=== PATIENT | female | born 1995 | race African-American/Black ===

== ENCOUNTER 2025-04-24 13:50 | Inpatient (IN) | payer OTHER, SELFPAY ==
--- NOTE | ~2025-04-24 | CT_ITS ---
CLINICAL HISTORY: pain and elevated LFTs CT abdomen and pelvis with contrast Comparison: US - US ABDOMEN LIMITED - 04/24/25 15:23 EDT Findings: No consolidation at the lung bases. Unremarkable gallbladder . Underdistended bladder. Multifocal decreased enhancement of the right kidney indicating pyelonephritis. In the upper pole there is a wedge-shaped peripheral region of decreased enhancement which measures slightly higher than fluid attenuation measuring 1.6 x 0.8 x 1.2 cm (measured on series 3, image 12 and series 6, image 50). There is mild right perinephric stranding. The left kidney enhances normally. No hydronephrosis or nephrolithiasis. Of the liver is normal in size and attenuation without focal lesion or periportal edema. 2.8 cm fluid attenuation lesion in the right adnexa is likely a dominant follicle in the right ovary The other solid organs are unremarkable. No bowel wall thickening or dilation. A normal appendix is identified. Normal vasculature. No lymphadenopathy. Small pelvic ascites and/or physiologic free fluid. No acute osseous abnormality. Impression: Right pyelonephritis. 1.6 cm region of decreased enhancement which measures slightly higher than simple fluid in the upper pole of the right kidney could be a developing abscess or infarct. No urinary tract stone or obstruction. Correlate with urinalysis. This document has been electronically signed by: Ceci Oviedo MD on 04/24/2025 18:37:25
--- NOTE | ~2025-04-24 | US_ITS ---
CLINICAL HISTORY: RUQ pain --- Additional Notes or Special Instructions: GB and CBD please Limited abdominal ultrasound Comparison: None available Findings: The liver is enlarged, measuring 18.6 cm in length. Normal echogenicity without focal lesions. Normal hepatopetal flow is seen within the portal vein. The common bile duct is normal in diameter, measuring 0.4 cm. No cholelithiasis. No wall thickening or pericholecystic fluid. Negative sonographic Sarkar sign. The right kidney is normal in echogenicity and size, measuring 11.7 cm in length. Unremarkable limited evaluation of the pancreas. Unremarkable aorta and inferior vena cava. Impression: Negative for acute cholecystitis. Hepatomegaly. Correlate with liver function tests. Hepatitis could be considered. This document has been electronically signed by: Ceci Oviedo MD on 04/24/2025 16:27:35
[2025-04-24 14:00] VITALS: BP 125/79; PULSE 59; RESP 16; TEMP 36.4; O2SAT 97; BMI 26.6
[2025-04-24] MEDS: Lactated Ringers 1,000 ML 999 ML IV (15:02)
[2025-04-24 15:07] LABS: Hematocrit 35.5 % (37.0-47.0); Hemoglobin 12.4 g/dl (12.0-16.0); Imm Gran Abs Auto 0.06 X10*3/uL (0.00-0.03); Imm Gran Pct Auto 0.5 % (0.0-0.4); Lymphocytes Absolute Auto 1.5 X10*3/uL (1.2-4.9); MANUAL DIFF FLAG SCAN; Mean Corpuscular HGB Conc 34.9 g/dl (31.0-35.0); Mean Corpuscular Hemoglobin 31.5 pg (27.0-33.0); Mean Corpuscular Volume 90.1 fL (80.0-98.0); NRBC Abs Auto 0.000 X10*3/uL (0.0-0.012); NRBC Pct Auto 0.0 /100WBC (0.0-0.2); Platelet Count 185 X10*3/uL (160-400); Red Blood Count 3.94 X10*6/uL (4.20-5.50); SCAN SMEAR FLAG 1; White Blood Count 11.7 X10*3/uL (4.8-10.8)
[2025-04-24 15:31] LABS: Alanine Aminotransferase 80 U/L (0-31); Albumin Level 3.3 g/dL (3.5-5.0); Alkaline Phosphatase 139 U/L (39-117); Anion Gap 14 (12-20); Aspartate Amino Transferase 75 U/L (5-31); Blood Urea Nitrogen 10 mg/dL (9-16); Calcium 8.8 mg/dL (8.4-10.2); Carbon Dioxide 28 mmol/L (22-29); Chloride 100 mmol/L (96-108); Creatinine Clr Calc Pharmacy 102.1; Estimated Glomerular Filt Rate > 60; Lipase 8 U/L (8-78); Potassium 2.7 mmol/L (3.3-5.1); Sodium 139 mmol/L (135-145); Total Protein 6.3 g/dL (6.5-8.0); Triglycerides 76 mg/dL (<150)
--- NOTE | 2025-04-24 15:37 | ED.GENADULT ---
HPI - General Adult General Chief complaint: Abdominal Pain Stated complaint: ABD PAIN X5D,FROM UC PER EMS Time Seen by Provider: 04/24/25 14:39 Source: patient, RN notes reviewed and old records reviewed Mode of arrival: EMS Limitations: no limitations History of Present Illness ED Provider: Simin HPI narrative: 29-year-old female presents for evaluation of upper abdominal pain. Patient reports mostly right upper abdominal pain for the last 5 or 6 days pain Her symptoms are associated with nausea and vomiting. Her pain radiates through to her back Her pain is a 10/10 at worst. But it does wax and wane in intensity. She occasionally drinks alcohol but not to excess. She denies any previous abdominal surgeries. Denies any fevers, chills. She went to urgent care prior to arrival and was since the ER for further evaluation and management Related Data Allergies Allergy/AdvReac Type Severity Reaction Status Date / Time No Known Allergies Allergy Verified 04/24/25 14:03 Review of Systems Constitutional: Constitutional: Denies body ache(s), Denies chills and Denies fever(s) Eyes: Eyes: Denies blurry vision ENT: Denies dizziness and Denies dry mouth Cardiovascular: Cardiovascular: Denies chest pain and Denies dyspnea on exertion Respiratory: Respiratory: Denies cough and Denies dyspnea on exertion Gastrointestinal: Gastrointestinal: Reports abdominal pain, Reports nausea and Reports vomiting Genitourinary: Genitourinary: Denies hematuria Musculoskeletal: Musculoskeletal: Reports back pain Integumentary/Breasts: Skin/Breast: Denies rash Neurologic: Denies dizziness Psychiatric: Psychiatric: Denies anxiety PMFSH Social History Social History Smoked in Last 30 Days: No Use of substances other than those prescribed or required for medical reasons: No Advance Directives: No Advance Directives Information Provided: Yes Do you have a plan to hurt others: No Plan Patient : No Physical Exam ED Vital Signs: Vital Signs - 24 hr 04/24/25 14:00 04/24/25 16:09 Temperature 97.5 F Pulse Rate 59 60 Respiratory Rate 16 15 Blood Pressure 125/79 111/64 Pulse Oximetry 97 100 Oxygen Delivery Method Room Air Room Air BMI result Body Mass Index 26.6 Const General: healthy appearing, comfortable, no acute distress, alert and awake Nutritional Appearance: well nourished Orientation/consciousness: patient oriented x3 HENMT Head: Yes normocephalic and Yes atraumatic Eyes Eyelids: Yes eyelids normal Conjunctivae: conjunctivae normal Sclerae: sclerae normal and scleral abnormal bilateral (Bilateral scleral icterus) Corneas: corneas normal Pupils: Equal, round and reactive pupils present EOM: EOMs intact bilaterally Neck Neck: Yes full ROM Resp Effort & Inspection: normal respiratory effort, able to speak in complete sentences and not labored Cardio Rate: regular rate Rhythm: regular rhythm GI Inspection: No distended Palpation (GI): Soft to palpation, not firm, Tenderness to palpation present (GI) in the RUQ and Sarkar's sign positive, Guarding due to palpation present (GI) in the RUQ and not rigid Auscultation: normoactive bowel sounds Skin General skin exam: elasticity normal Neuro General: patient oriented x3 Cranial nerves: Yes Equal, round and reactive pupils present and Yes Bilaterally intact EOM present Cognition (Neuro): normal cognition Extrem Other: Moving all extremities well without any obvious deformities Course Reevaluation(s) Reevaluation #1: Patient's CT scan shows right-sided pyelonephritis. This is consistent with her urinalysis. The patient does complain of UTI symptoms, mostly burning with urination. I ordered IV fluids, blood cultures, lactic acid and IV antibiotics. She does not meet sepsis criteria. Her vital signs are all within normal limits. Given the concern for pyelonephritis as well as concern for biliary disease with the elevated liver enzymes we will treat with both ceftriaxone and metronidazole. I discussed with Urology, Dr. Giraldo who recommends a 14 day course of antibiotics. I spoke to Dr. Becerra, [place] who recommends admission, repeat labs and the patient will likely need MRCP if the liver enzymes remain elevated tomorrow Time: 18:54 Medications Administered Generic Name Dose Route Start Last Admin Trade Name Freq PRN Reason Stop Dose Admin Potassium Chloride/Sodium Chloride 40 meq in 1,000 mls @ 150 mls/hr 04/24/25 15:45 04/24/25 16:08 Kcl 40 Meq In 0.9 % Sodium Chl IVCONT 150 mls/hr .Q6H40M DIA Administration Discontinued Medications Generic Name Dose Route Start Last Admin Trade Name Freq PRN Reason Stop Dose Admin Lactated Ringer's 1,000 mls @ 999 mls/hr 04/24/25 15:00 04/24/25 16:04 Lr IV 04/24/25 16:00 Infused .Q1H1M DIA Infusion Iohexol 100 ml 04/24/25 16:53 04/24/25 16:54 Iohexol 350 Mg/Ml 100 Ml Infus..Btl IV 04/24/25 16:54 85 ml ONCE ONE Administration Medical Decision Making Medical Decision Making [facility] Narrative: 29-year-old female presents for evaluation of upper abdominal pain. The pain started 5 or 6 days ago. She has significant right upper quadrant tenderness on exam. Due to her skin tone in his difficult to see if she has down especially in his have some scleral icterus. Plan for basic labs including LFTs with bilirubin breakdown and a lipase. We had an ultrasound of the upper quadrant. Most likely diagnosis is cholelithiasis, acute cholecystitis, pancreatitis, gallstone pancreatitis, or peptic ulcer disease. Differential Diagnosis Differential Diagnoses: The differential diagnosis associated with the presentation includes As above Admission/Observation Consideration of admission/observation: Escalation of care including admission/observation considered Consult Healthcare Provider Management of the patient was discussed with: Hospitalist and Finance Professional Discussed with both urology and GI recommendations are in the course Lab Data [facility] Lab Attestation statement: I reviewed the patient's lab results. Mild leukocytosis to 11.7. No significant anemia. Normal platelet count. The patient is sodium is within normal limits, potassium is low at 2.7 and likely due to vomiting and decreased p.o. intake. Renal function is normal limits. The patient has an elevated total bilirubin with mostly direct at 3.1. Slightly increase in AST, ALT and alk phos. I suspect this is all related to her pathology related to her current visit. Ultrasound is pending likely biliary disease 04/24/25 15:02 04/24/25 15:02 Labs: Lab Results 04/24/25 04/24/25 Range/Units 15:02 16:10 WBC 11.7 H (4.8-10.8) X10*3/uL RBC 3.94 L (4.20-5.50) X10*6/uL Hgb 12.4 (12.0-16.0) g/dl Hct 35.5 L (37.0-47.0) % MCV 90.1 (80.0-98.0) fL MCH 31.5 (27.0-33.0) pg MCHC 34.9 (31.0-35.0) g/dl RDW 14.2 (11.0-16.0) % Plt Count 185 (160-400) X10*3/uL MPV 9.1 L (9.4-12.3) fL Immature Gran % (Auto) 0.5 H (0.0-0.4) % Neut % (Auto) 69.2 (45-73) % Lymph % (Auto) 12.9 L (20-40) % [place] % (Auto) 13.7 H (2-11) % Eos % (Auto) 3.5 (0-4) % Baso % (Auto) 0.2 (0-2) % Lymph # (Auto) 1.5 (1.2-4.9) X10*3/uL [place] # (Auto) 1.6 H (0.1-1.2) X10*3/uL Eos # (Auto) 0.4 (0.0-0.4) X10*3/uL Baso # (Auto) 0.0 (0.0-0.2) X10*3/uL Abs Immat Gran (auto) 0.06 H (0.00-0.03) X10*3/uL Absolute Neuts (auto) 8.1 (2.0-8.3) x10*3/uL Absolute Nucleated RBC 0.000 (0.0-0.012) X10*3/uL Nucleated RBC % (auto) 0.0 (0.0-0.2) /100WBC Smear Tech's Comments VERIFIED Sodium 139 (135-145) mmol/L Potassium 2.7 L* (3.3-5.1) mmol/L Chloride 100 (96-108) mmol/L Carbon Dioxide 28 (22-29) mmol/L Anion Gap 14 (12-20) BUN 10 (9-16) mg/dL Creatinine 0.87 (0.5-1.4) mg/dL Estim Creat Clear Calc 102.1 Estimated GFR > 60 Random Glucose 98 (60-115) mg/dL Calcium 8.8 (8.4-10.2) mg/dL Total Bilirubin 4.0 H (0.0-1.0) mg/dL Direct Bilirubin 3.1 H (0.0-0.5) mg/dL AST 75 H (5-31) U/L ALT 80 H (0-31) U/L Alkaline Phosphatase 139 H (39-117) U/L Total Protein 6.3 L (6.5-8.0) g/dL Albumin 3.3 L (3.5-5.0) g/dL Triglycerides 76 (<150) mg/dL Lipase 8 (8-78) U/L Beta HCG, Quant < 2 mIU/mL Urine Color Dark Yellow Urine Appearance Cloudy Urine pH 6.0 (5.0-9.0) Ur Specific [place] 1.015 (1.005-1.025) Urine Protein 30 (1+) H (Neg-Trace) mg/dL Urine Glucose (UA) Negative (Negative) mg/dL Urine Ketones 15 (Negative) mg/dL Urine Blood Trace H (Negative) Urine Nitrite Positive H (Negative) Ur Leukocyte Esterase Small (1+) H (Negative) Urine RBC 6-10 H (0-2) /HPF Urine WBC 11-20 H (0-5) /HPF Ur Squamous Epith Cells 6-10 (0-2) /HPF Urine Bacteria 4+ (None Seen) Hyaline Casts 3-5 (0-2) /LPF Ethyl Alcohol < 10 mg/dL Independent Interpretation I performed an independent interpretation of an: CT Scan Interpretation: Agree with Radiology interpretation Radiology Impression Discussion of test interpretation with radiology: I have reviewed the radiologist's reading. Radiologist Impression: Findings: No consolidation at the lung bases. Unremarkable gallbladder . Underdistended bladder. Multifocal decreased enhancement of the right kidney indicating pyelonephritis. In the upper pole there is a wedge-shaped peripheral region of decreased enhancement which measures slightly higher than fluid attenuation measuring 1.6 x 0.8 x 1.2 cm (measured on series 3, image 12 and series 6, image 50). There is mild right perinephric stranding. The left kidney enhances normally. No hydronephrosis or nephrolithiasis. Of the liver is normal in size and attenuation without focal lesion or periportal edema. 2.8 cm fluid attenuation lesion in the right adnexa is likely a dominant follicle in the right ovary The other solid organs are unremarkable. No bowel wall thickening or dilation. A normal appendix is identified. Normal vasculature. No lymphadenopathy. Small pelvic ascites and/or physiologic free fluid. No acute osseous abnormality. Impression: Right pyelonephritis. 1.6 cm region of decreased enhancement which measures slightly higher than simple fluid in the upper pole of the right kidney could be a developing abscess or infarct. No urinary tract stone or obstruction. Correlate with urinalysis. This document has been electronically signed by: Ceci Oviedo MD on 04/24/2025 18:37:25 Findings: The liver is enlarged, measuring 18.6 cm in length. Normal echogenicity without focal lesions. Normal hepatopetal flow is seen within the portal vein. The common bile duct is normal in diameter, measuring 0.4 cm. No cholelithiasis. No wall thickening or pericholecystic fluid. Negative sonographic Sarkar sign. The right kidney is normal in echogenicity and size, measuring 11.7 cm in length. Unremarkable limited evaluation of the pancreas. Unremarkable aorta and inferior vena cava. Impression: Negative for acute cholecystitis. Hepatomegaly. Correlate with liver function tests. Hepatitis could be considered. This document has been electronically signed by: Ceci Oviedo MD on 04/24/2025 16:27:35 Discharge Plan Discharge Clinical Impression: Pyelonephritis, Elevated bilirubin Patient Disposition: Admitted As Inpatient Print Language: American
[2025-04-24] MEDS: KCl 40 mEq in 0.9 % Sodium Chl 40 MEQ/1,000 ML IV.SOLN 150 MEQ IVCONT ×2 (16:08→23:27)
[2025-04-24 16:09] VITALS: BP 111/64; PULSE 60; RESP 15; O2SAT 100
[2025-04-24 16:24] LABS: Appearance Urine Cloudy; Glucose Urine UA Negative (Negative); PH 6.0 (5.0-9.0); Specific Gravity - Urine 1.015 (1.005-1.025); UMIC TRIGGER UACC YES
[2025-04-24 16:29] LABS: UACC Culture Trigger YES
[2025-04-24] MEDS: iohexoL 350 MG/ML 100 ML INFUS..BTL IV (16:54)
[2025-04-24] MEDS: metroNIDAZOLE/NS 500 MG/100 ML PIGGYBACK 100 MG IV (19:46)
[2025-04-24 19:50] VITALS: BP 116/71; PULSE 63; RESP 13; TEMP 36.8; O2SAT 100
--- NOTE | 2025-04-24 20:25 | PM.IMHP ---
History of Present Illness Date of Service: 04/24/25 Attending physician on admission: Justin Robb Chief Complaint: RUQ abdominal pain with N/V X5D Patient is a 29-year-old black female with past medical history alcohol use disorder, one episode of alcohol poisoning 2023, remote hx of smoking cocaine no hx of IVDA, UTI, STD remotely and treated, marijuana/tobacco use presents to ED with 5 days of persistent RUQ pain and R FLank pain with N/V. Pt reports having chills, unsure if fever was present. Pt denies any chest pain, SOB at rest or with exertion, lower leg pain, RIOS, or visual changes. Pt currently feeling better after receiving Flagyl, IVF and zofran. Pt starting ceftriaxone. Patient denies any vaginal discharge or burning or pain on urination. Patient denies any history of hepatitis a, B, C or HIV. Patient states she was last tested for hepatitis 2 years prior. Work up in ED noted elevated LFTs and TBILI (4.0), DBILI (3.1), AST 75, ALT 80 and ALK PHOS 139. K 2.7 and pt was started on IVF K 40 MEQ infusing currently. Lactic Acid 0.8. Leukocytosis of 11.[address] notes Gallbladder is unremarkable. There was no evidence of common bile duct dilatation. Liver is of normal size and attenuation without focal lesion or periportal edema. There may be the presence of a dominant follicle in the right ovary. Appendix is normal. Ultrasound of the abdomen nose hepatomegaly and hepatitis should be considered. Ultrasound is negative for acute cholecystitis. CT of the abdomen and pelvis notes right pyelonephritis correlating with patient's complaint of right flank pain which could indicate developing abscess or infarct based on the slightly higher than simple fluid in the upper pole of the right kidney. There is no evidence of urinary tract stone or obstruction. There is the presence of pelvic ascites and/or physiological free fluid. UA notes +1 protein, trace blood, positive nitrites, small leukocyte esterase, 6-10 RBCs, 11-20 WBCs, 4+ bacteria and 3-5 hyaline cast. Gonorrhea testing is Pending. ED provider spoke with both urology and GI. Urology recommends at least 2 weeks of antibiotics and ceftriaxone was started 2 g Q 24. Urine culture and blood cultures pending. GI recommends that if patient's liver enzymes and bilirubin continued to rise, that patient will need a MRI in the a.m.. Flagyl had been started in the ED. Patient is also on IV fluids with 40 KCL noting potassium is 2.7. Telemetry ordered Review of Systems Review of Systems: Patient currently denies any chest pain, GERD/gastritis, shortness of breath at rest, but is continuing to report right upper quadrant belly pain and right flank pain. Patient has had no nausea or vomiting since receiving Zofran. Patient is feeling slightly better but is still having chills. Patient states her significant other went out to get her a salad as she is hungry. Patient advised to follow NPO status versus clear diet. Yes all other systems are reviewed and are negative [facility] Medical History (Updated 04/24/25 @ 20:49 by DARIN Guerra) Cocaine use UTI (urinary tract infection) Accidental poisoning by alcoholic beverages Alcohol use disorder Cognitive capacity: Alert and orientated x3 Functional capacity: independent ambulation Patient : No (HCG negative) Pertinent family history: Mother age 57: , alcoholic, drug abuse history, osteoarthritis, unknown cardiac history Father: Patient is a estranged from her father Surgical History (Updated 04/24/25 @ 20:49 by DARIN Guerra) H/O wisdom tooth extraction Social History (Updated 04/24/25 @ 20:51 by DARIN Guerra) Alcohol intake: current Comment: Patient drinks alcohol hard liquor mostly vodka and Tequila mostly 4/7 days Patient Tobacco Use Status: Current everyday Tobacco user Years Smoked: Thirteen Substance Use Type: Crack/Cocaine and Marijuana Ebola Risk: Travel/Contact With Anyone From Affected Area/s: No Has Patient Experienced Ebola Symptoms: No Meds Allergies Allergy/AdvReac Type Severity Reaction Status Date / Time No Known Allergies Allergy Verified 04/24/25 14:03 Active Medications: Current Medications Acetaminophen (Acetaminophen 325 Mg Tablet) 650 mg PO Q6H PRN PRN Reason: Pain, Mild 1-3,fever,headache Albuterol/Ipratropium (Albuterol/Iprat 2.5/0.5mg 3 Ml Ampul.Neb) 3 ml INHALE Q4H PRN PRN Reason: Shortness of Breath/Wheezing Calcium Carbonate (Calcium Carbonate 750 Mg Tab.Chew) 750 mg PO Q4H PRN PRN Reason: Heartburn Ceftriaxone Sodium (Ceftriaxone Sodium 2 Gm Vial) 2 gm IVPUSH Q24H DIA Enoxaparin Sodium (Enoxaparin Sodium 40 Mg/0.4 Ml Syringe) 40 mg SUBCUT Q24H [facility] Potassium Chloride/Sodium Chloride (Kcl 40 Meq In 0.9 % Sodium Chl) 40 meq in 1,000 mls @ 150 mls/hr IVCONT .Q6H40M [facility] Last Admin: 04/24/25 16:08 Dose: 150 mls/hr Magnesium Hydroxide (Milk Of Magnesia 30 Ml Oral.Susp) 30 ml PO DAILY PRN PRN Reason: Constipation Melatonin (Melatonin 3 Mg Tablet) 6 mg PO BEDTIME PRN PRN Reason: Insomnia Ondansetron HCl (Ondansetron Hcl 4 Mg/2 Ml Vial) 4 mg IVPUSH Q8H PRN PRN Reason: Nausea and Vomiting Polyethylene Glycol (Polyethylene Glycol 3350 17 Gm Powd.Pack) 17 gm PO DAILY PRN PRN Reason: Constipation Sodium Chloride (0.9 % Sodium Chloride Flush 3 Ml Syringe) 3 ml IVFLUSH QSHIFT [facility] Physical Exam Vital Signs and Narrative: Vital Signs: Last Vital Signs Temp 98.2 F 04/24/25 19:50 Pulse 63 04/24/25 19:50 Resp 13 04/24/25 19:50 BP 116/71 04/24/25 19:50 Pulse Ox 100 04/24/25 19:50 O2 Del Method Room Air 04/24/25 19:50 BMI result Body Mass Index 26.6 Alert and orientated X3, able to give good history. Neuro: CN II-X11 intact, no deficits, visual acuity intact EYES: PERRLA, EOM intact, sclera slightly icteric, conjunctiva pink, glasses in place ENT: hearing intact, no issues with swallowing, uvula midline, lips moist, nares patent no epistaxis Cardiac: S1 S2 RRR, no murmur, no JVD, no edema in Lower ext Pulmonary: lungs diminished bilaterally, no adventitious sounds Abdominal: Abdomen soft but distended, tenderness in the right upper quadrant with costovertebral tenderness on the right side only, bowel sounds active MSK: strength 5/5 upper and lower extremities : no CVA tenderness no bladder distension Extremities: no edema in lower extremities, PT and DP pulses palpable +2 Psych: mood stable, judgement and insight good Skin: Piercing in the umbilicus, no new rashes or lesions Results Labs 04/24/25 15:02 04/24/25 15:02 Labs: Laboratory Results - last 24 hr 04/24/25 04/24/25 04/24/25 15:02 16:10 19:28 MCV 90.1 MCH 31.5 MCHC 34.9 RDW 14.2 Plt Count 185 MPV 9.1 L Immature Gran % (Auto) 0.5 H Neut % (Auto) 69.2 Lymph % (Auto) 12.9 L [place] % (Auto) 13.7 H Eos % (Auto) 3.5 Baso % (Auto) 0.2 Lymph # (Auto) 1.5 [place] # (Auto) 1.6 H Eos # (Auto) 0.4 Baso # (Auto) 0.0 Abs Immat Gran (auto) 0.06 H Absolute Neuts (auto) 8.1 Absolute Nucleated RBC 0.000 Nucleated RBC % (auto) 0.0 Smear Tech's Comments VERIFIED Anion Gap 14 Estim Creat Clear Calc 102.1 Estimated GFR > 60 Random Glucose 98 Lactic Acid 0.8 Calcium 8.8 Total Bilirubin 4.0 H Direct Bilirubin 3.1 H AST 75 H ALT 80 H Alkaline Phosphatase 139 H Total Protein 6.3 L Albumin 3.3 L Triglycerides 76 Lipase 8 Beta HCG, Quant < 2 Urine Color Dark Yellow Urine Appearance Cloudy Urine pH 6.0 Ur Specific [place] 1.015 Urine Protein 30 (1+) H Urine Glucose (UA) Negative Urine Ketones 15 Urine Blood Trace H Urine Nitrite Positive H Ur Leukocyte Esterase Small (1+) H Urine RBC 6-10 H Urine WBC 11-20 H Ur Squamous Epith Cells 6-10 Urine Bacteria 4+ Hyaline Casts 3-5 Ethyl Alcohol < 10 ECG Prior ECG tracings: not available for review Imaging Radiologist's Impressions: CT ABD PELVIS Impression: Right pyelonephritis. 1.6 cm region of decreased enhancement which measures slightly higher than simple fluid in the upper pole of the right kidney could be a developing abscess or infarct. No urinary tract stone or obstruction. Correlate with urinalysis. US ABD Impression: Negative for acute cholecystitis. Hepatomegaly. Correlate with liver function tests. Hepatitis could be considered. Assessment and Plan (1) Abscess of right kidney: Status: Acute (2) Pyelonephritis: Status: Acute (3) Alcohol use disorder: Status: Acute Plan Patient is a 29-year-old black female with past medical history alcohol use disorder, one episode of alcohol poisoning 2023, remote hx of smoking cocaine no hx of IVDA, UTI, STD remotely and treated, marijuana/tobacco use presents to ED with 5 days of persistent RUQ pain and R FLank pain with N/V. Pt reports having chills, unsure if fever was present. Pt being admitted for pyelonephritis with possible R kindey abscess, hypokalemia and abnormal liver enzymes with evidence of hepatomegaly and possible alcohol induced hepatitis. Pt does not meet criteria for Sepsis/ SIRS upon admission at this time. Pyelonephritis/ possible R kidney abscess Urology consulted Fluid collection measures 1.6X0.8X1.2 Cm,likely too small for intervention/ US guided drainage (<5cm) Gonorrhea testing via urine pending - done in ED Ceftriaxone changed to Zosyn after review with Attending to cover renal and GI concenrns / ABX for 2 weeks - anticipated end date Follow urine culture BC pending, if negative can consider PICC line if needed IVF continue, LA 0.8 on admission Monitor for worsening symptoms, sepsis Hypokalemia Replacement ordered IV, KCL 40 MEQ in ED Repeat BMP this evening Telemetry Elevated Liver enzymes/ Hepatomegaly on US with hepatitis, possibly alcohol induced GI consulted No CBD dilatation on scan/US If LFTs/ BILI continue to rise, pt will need MRI/ MRCP in AM per GI Hepatic panel in AM Hepatitis testing added CIWA ordered Avoid hepatotoxic medications Zosyn ordered - warning with Flagyl due to elevated TBILI and DBILI Alcohol use disorder with hx of alcohol poisoning 2023 CIWA ordered Thiamine and Folic Acid IV Addictions counseled No indication for phenobarbitol as pt states her last drink was last Saturday due to her 5 days of illness Pt denies any hx of seizure or withdrawal MG 1.9, will give 1 GM IV Marijuana/Toabcco use Pt mixes marijuana and tobacco together and smokes usually twice daily Pt defers need for NRT Pt denies hx of hyperemesis cyclical vomiting syndrome associated with marijuana use DUO nebs PRN, no hx fo asthma or emphysema DVT prophylaxis: lovenox MED REC PENDING FULL CODE STATUS Quality Stroke Does the patient have a stroke diagnosis?: No Reason for No Anti-thrombotic by Day Two: N/A - Med Ordered VTE Prior VTE?: No VTE Risk Level:: Medical - moderate - high VTE Device Contraindication: N/A - Device Ordered VTE Drug Contraindication: N/A - Med Ordered
[2025-04-24 21:00] LABS: Magnesium 1.9 mg/dL (1.6-2.6)
--- NOTE | 2025-04-24 22:36 | MHC.EDTECH ---
Call[place] Gastroenterology Dr. Becerra & [facility] [place]ults for Pylonenephristis and elevated liver enzymes
--- NOTE | 2025-04-24 23:46 | PC.NURSE ---
Patient is alert and oriented x4, VSS. Patient reports pain in R flank is 1/10 at present s/p being medicated with Dilaudid 0.5 mg IVP at 20:24. 1 L of KCl 40 meq in 0.9% NS infusing at 150 mL/hr without issues via 20 G IV line in L AC. Patient denies nausea/vomiting and tolerates PO fluids well. Patient is able to make her needs known, currently resting comfortably in stretcher bed, watching TV, call perkins in patient's reach.
[2025-04-25] VITALS (7 sets, daily range): BP systolic 106–132; BP diastolic 58–82; PULSE 55–76; RESP 16–18; TEMP 36.1–36.8; O2SAT 97–99
[2025-04-25 05:59] LABS: Hematocrit 31.1 % (37.0-47.0); Hemoglobin 10.8 g/dl (12.0-16.0); Imm Gran Abs Auto 0.04 X10*3/uL (0.00-0.03); Imm Gran Pct Auto 0.4 % (0.0-0.4); Lymphocytes Absolute Auto 2.8 X10*3/uL (1.2-4.9); MANUAL DIFF FLAG SCAN; Mean Corpuscular HGB Conc 34.7 g/dl (31.0-35.0); Mean Corpuscular Hemoglobin 31.4 pg (27.0-33.0); Mean Corpuscular Volume 90.4 fL (80.0-98.0); NRBC Abs Auto 0.000 X10*3/uL (0.0-0.012); NRBC Pct Auto 0.0 /100WBC (0.0-0.2); Platelet Count 181 X10*3/uL (160-400); Red Blood Count 3.44 X10*6/uL (4.20-5.50); SCAN SMEAR FLAG 1; White Blood Count 11.1 X10*3/uL (4.8-10.8)
[2025-04-25 06:16] LABS: Alanine Aminotransferase 76 U/L (0-31); Albumin Level 2.8 g/dL (3.5-5.0); Alkaline Phosphatase 124 U/L (39-117); Anion Gap 12 (12-20); Aspartate Amino Transferase 83 U/L (5-31); Blood Urea Nitrogen 8 mg/dL (9-16); Calcium 8.2 mg/dL (8.4-10.2); Carbon Dioxide 24 mmol/L (22-29); Chloride 107 mmol/L (96-108); Creatinine Clr Calc Pharmacy 104.5; Estimated Glomerular Filt Rate > 60; Potassium 3.2 mmol/L (3.3-5.1); Sodium 140 mmol/L (135-145); Total Protein 5.5 g/dL (6.5-8.0)
[2025-04-25] MEDS: KCl 40 mEq in 0.9 % Sodium Chl 40 MEQ/1,000 ML IV.SOLN 150 MEQ IVCONT (06:28)
--- NOTE | 2025-04-25 08:27 | PHA.MEDREC ---
Pharmacy Consult ? Medication Reconciliation Pharmacy has completed the medication reconciliation. Patient reports taking no medications
--- NOTE | 2025-04-25 09:02 | P.CNGI_ITS ---
History of Present Illness Data of Consult Service Date: 04/25/25 Requesting physician: Seble Glover Primary Care Provider: None Physician HPI Reason for consult: Elevated LFTs 29 year old AA female with alcohol use disorder (an episode of alcohol poisoning 2023), remote hx of smoking cocaine no hx of IVDA, UTI, STD remotely and treated, marijuana/tobacco use seen at [facility] on 04/24/25 with 5 days of persistent RUQ pain and R FLank pain with N/V. Pt reported having chills and unsure about fever. She denied chest pain, SOB at rest or with exertion, lower leg pain, RIOS, or visual changes. Pt felt better after receiving Flagyl, IVF zofran and ceftriaxone. Patient denied vaginal discharge or burning or pain on urination. Patient denies any history of hepatitis a, B, C or HIV - per pt tested for hepatitis 2 years prior. Labs in the ER showed elevated LFTs - TBILI (4.0), DBILI (3.1), AST 75, ALT 80 and ALK PHOS 139. K 2.7 and pt was started on IVF K 40 MEQ. Lactic Acid 0.8. Leukocytosis of 11.7 no bandemia. UA +1 protein, trace blood, positive nitrites, small leukocyte esterase, 6-10 RBCs, 11-20 WBCs, 4+ bacteria and 3-5 hyaline cast. Gonorrhea testing is Pending. 04/24/[address] SCAN SHOWED: Right pyelonephritis. 1.6 cm region of decreased enhancement which measures slightly higher than simple fluid in the upper pole of the right kidney could be a developing abscess or infarct. No urinary tract stone or obstruction. Correlate with urinalysis. 04/24/25 ABD US SHOWED: Negative for acute cholecystitis. Hepatomegaly. Correlate with liver function tests. Hepatitis could be considered. Review of Systems 2 Review of Systems: Yes all other systems are reviewed and are negative [facility] Past Medical History Medical History (Updated 04/25/25 @ 09:03 by Hedy Becerra MD) Cocaine use UTI (urinary tract infection) Accidental poisoning by alcoholic beverages Alcohol use disorder Surgical History Surgical History (Updated 04/24/25 @ 20:49 by ASHLEY Guerra) H/O wisdom tooth extraction Social History Social History (Updated 04/24/25 @ 20:51 by ASHLEY GuerraBCChip Household Members: Children and Friend(s) Housing: House Do you presently have visiting nurse or other home services: No Alcohol intake: current Comment: Patient drinks alcohol hard liquor mostly vodka and Tequila mostly 4/7 days Patient Tobacco Use Status: Current everyday Tobacco user Tobacco use type: Cigarette Cigarette Packs Per Day: 0 Cigarettes Per Day: 0 Years Smoked: Thirteen Smoked in Last 30 Days: Yes e-Cigarette/Vaping Use: Currently Using Frequency of e-Cigarette/Vaping Use: daily Patient Interested in Nicotine Replacement: No Patient Given Instructions on How to Stop Smoking: No Second Hand Smoke Exposure: No Use of substances other than those prescribed or required for medical reasons: No Substance Use Type: Crack/Cocaine and Marijuana Substance Use Type Other:: Patient uses marijuana mixed with tobacco everyday Substance Use Frequency: Daily Substance Use Frequency Other:: No longer uses cocaine, patient has stopped when her 1st daughter was born Currently Displaying Signs/Symptoms of Drug Intoxication Withdrawal: No Have you been hit, kicked, punched, or otherwise hurt by someone within the past year? If so, by whom?: No Do you feel safe in your current relationship?: Yes Is there a partner from a previous relationship who is making you feel unsafe now?: No Are you made to feel afraid or neglected: No Advance Directives: No Advance Directives Information Provided: Yes Do you have a plan to hurt others: No Plan Recently lost weight without trying: Yes How much weight loss: 2-13 pounds Eating poorly because of decreased appetite: Yes Nutrition screen score: 4 Nutrition Risks: No Nutritional Risk Patient : No : No Poor oral hygiene: No service: No Travel History Ebola Risk: Travel/Contact With Anyone From Affected Area/s: No Has Patient Experienced Ebola Symptoms: No Meds Allergies Allergy/AdvReac Type Severity Reaction Status Date / Time No Known Allergies Allergy Verified 04/24/25 14:03 Active Medications: Current Medications Acetaminophen (Acetaminophen 325 Mg Tablet) 650 mg PO Q6H PRN PRN Reason: Pain, Mild 1-3,fever,headache Last Admin: 04/25/25 03:10 Dose: 650 mg Albuterol/Ipratropium (Albuterol/Iprat 2.5/0.5mg 3 Ml Ampul.Neb) 3 ml INHALE Q4H PRN PRN Reason: Shortness of Breath/Wheezing Calcium Carbonate (Calcium Carbonate 750 Mg Tab.Chew) 750 mg PO Q4H PRN PRN Reason: Heartburn Enoxaparin Sodium (Enoxaparin Sodium 40 Mg/0.4 Ml Syringe) 40 mg SUBCUT Q24H [facility] Last Admin: 04/24/25 20:55 Dose: 40 mg Hydromorphone HCl (Hydromorphone Hcl 0.5 Mg/0.5 Ml Syringe) 0.5 mg IVPUSH Q3H PRN; Protocol PRN Reason: Pain, Severe (Pain Scale 7-10) Last Admin: 04/25/25 04:21 Dose: 0.5 mg Thiamine HCl 100 mg/ Sodium (Chloride) 101 mls @ 202 mls/hr IV DAILY [facility] Folic Acid 1 mg/ Sodium (Chloride) 50.2 mls @ 100.4 mls/hr IV DAILY [facility] Piperacillin Sod/Tazobactam (Sod 4.5 gm/ Sodium Chloride) 100 mls @ 200 mls/hr IV Q6H [facility] Last Infusion: 04/25/25 06:18 Dose: Infused Magnesium Hydroxide (Milk Of Magnesia 30 Ml Oral.Susp) 30 ml PO DAILY PRN PRN Reason: Constipation Melatonin (Melatonin 3 Mg Tablet) 6 mg PO BEDTIME PRN PRN Reason: Insomnia Ondansetron HCl (Ondansetron Hcl 4 Mg/2 Ml Vial) 4 mg IVPUSH Q8H PRN PRN Reason: Nausea and Vomiting Last Admin: 04/25/25 06:26 Dose: 4 mg Polyethylene Glycol (Polyethylene Glycol 3350 17 Gm Powd.Pack) 17 gm PO DAILY PRN PRN Reason: Constipation Sodium Chloride (0.9 % Sodium Chloride Flush 3 Ml Syringe) 3 ml IVFLUSH QSHIFT [facility] Last Admin: 04/25/25 07:31 Dose: Not Given Home Medications ?Medication ?Instructions ?Recorded ?Confirmed ?Last Taken ?Type No Known Home Meds 04/25/25 04/25/25 Un known History Physical Exam 2 Vital Signs: Vital Signs: Last Vital Signs Temp 97.4 F 04/25/25 07:39 Pulse 62 04/25/25 07:39 Resp 16 04/25/25 07:39 BP 106/58 L 04/25/25 07:39 Pulse Ox 99 04/25/25 07:39 O2 Del Method Room Air 04/25/25 07:39 BMI result Body Mass Index 26.6 Const: General: no acute distress Nutritional Appearance: overweight O rientation/consciousness: patient oriented x3 HEENT: Head: Yes normal to inspection Ears: hearing grossly normal bilaterally Eyes: Sclerae: sclerae normal Pupils: Equal, round and reactive pupils present Neck: Neck: Yes normal visual inspection Chest: Chest palpation & inspection: normal inspection of the chest Resp: Effort & Inspection: normal respiratory effort Auscultation: clear to auscultation bilaterally Cardio: Palpation: normal PMI Rate: regular rate Rhythm: regular rhythm Heart sounds: S1 normal heart sound present, S2 normal heart sound present and no murmurs GI: Palpation (GI): Soft to palpation, Tenderness to palpation present (GI) (R flank and groin tenderness) and No hepatosplenomegaly present Auscultation: n ormal bowel sounds Rectal Exam - Female: deferred Skin: General skin exam: no rashes or lesions noted Neuro: General: patient oriented x3, gait normal and moves all extremities Cranial nerves: Yes Equal, round and reactive pupils present Psych: Appearance: grossly normal Mental Status: mental status grossly normal Results Labs 04/25/25 05:52 04/25/25 05:52 Labs: Short CBC 04/24/25 04/25/25 Range/Units 15:02 05:52 WBC 11.7 H 11.1 H (4.8-10.8) X10*3/uL Hgb 12.4 10.8 L (12.0-16.0) g/dl Hct 35.5 L 31.1 L (37.0-47.0) % Plt Count 185 181 (160-400) X10*3/uL [facility] 04/24/25 04/25/25 15:02 05:52 Sodium 139 140 Potassium 2.7 L* 3.2 L Chloride 100 107 Carbon Dioxide 28 24 BUN 10 8 L Creatinine 0.87 0.85 Calcium 8.8 8.2 L D Liver Function 04/24/25 04/25/25 Range/Units 15:02 05:52 Total Bilirubin 4.0 H 2.1 H (0.0-1.0) mg/dL Direct Bilirubin 3.1 H 1.6 H (0.0-0.5) mg/dL AST 75 H 83 H (5-31) U/L ALT 80 H 76 H (0-31) U/L Alkaline Phosphatase 139 H 124 H (39-117) U/L Albumin 3.3 L 2.8 L (3.5-5.0) g/dL Urine 04/24/25 Range/Units 16:10 Urine Color Dark Yellow Urine Appearance Cloudy Urine pH 6.0 (5.0-9.0) Ur Specific [place] 1.015 (1.005-1.025) Urine Protein 30 (1+) H (Neg-Trace) mg/dL Urine Glucose (UA) Negative (Negative) mg/dL Assessment and Plan (1) Elevated LFTs: Status: Acute Plan 29 year old AA female with alcohol use disorder (an episode of alcohol poisoning 2023), remote hx of smoking cocaine no hx of IVDA, UTI, STD remotely and treated, marijuana/tobacco use [place] [facility] [place] with 5 days of persistent RUQ pain and R FLank pain with N/V due to right pyelonephritis. Patient denies past hx of liver disease or hepatitis A, B, C or HIV - per pt tested for hepatitis 2 years prior. Labs in the ER showed elevated LFTs - TBILI (4.0), DBILI (3.1), AST 75, ALT 80 and ALK PHOS 139. Repeat LFTs show a decrease in TB to 2.1 today. Hep serologies are pending. Elevated LFTs are likely related to rt pylonephritis with cholangites lente RECOMMENDATIONS: 1. Agree with IV pain medications and antibiotics 2. Follow LFTs daily. 3. If LFTs remain elevated, further evaluation with MRCP to rule out CBD stone/obstruction Procedures Date of Service Date of Service: 04/25/25
[2025-04-25] MEDS: Potassium Chloride ER 20 MEQ TAB.ER.PRT PO (09:16)
[2025-04-25 09:36] LABS: Gamma Glutamyl Transpeptidase 203 U/L (7-33)
[2025-04-25] MEDS: Thiamine HCL 100 MG in 0.9 % Sodium Chloride 100 ML 202 MG IV (09:49)
[2025-04-25 09:59] LABS: CT PCR Urine DETECTED (Not Detect.); NG PCR Urine NOT DETECTED (Not Detect.)
[2025-04-25 10:06] LABS: Hemoglobin A1C 84.4926 umol/L; Total Hemoglobin (HGBA1C) 2916.8480 umol/L
--- NOTE | 2025-04-25 11:15 | P.PNIM_ITS ---
Subjective Subjective Date of Service: 04/25/25 Interval History: c/o severe R flank/groin pain no fever Review of Systems Review of Systems: Yes all other systems are reviewed and are negative Physical Exam 2 Vital Signs: Vital Signs: Last Vital Signs Temp 97.4 F 04/25/25 10:00 Pulse 59 04/25/25 10:00 Resp 16 04/25/25 10:00 BP 132/80 04/25/25 10:00 Pulse Ox 98 04/25/25 10:00 O2 Del Method Room Air 04/25/25 10:00 BMI result Body Mass Index 26.6 Gen: in no acute distress HEENT: sclera anicteric, moist mucus membranes Neck: supple Lungs: clear to auscultation bilaterally Heart: regular rate and rhythm, no murmurs : R CVA tenderness Abd: soft, R flank and groin tenderness, non-distended Ext: no edema Skin: warm/well-perfused Neuro: alert and oriented x3, no focal findings Psych: appropriate affect Objective Data Active Medications Acetaminophen (Acetaminophen 325 Mg Tablet) 650 mg PO Q6H PRN PRN Reason: Pain, Mild 1-3,fever,headache Last Admin: 04/25/25 03:10 Dose: 650 mg Documented By: GERTRUDIS Albuterol/Ipratropium (Albuterol/Iprat 2.5/0.5mg 3 Ml Ampul.Neb) 3 ml INHALE Q4H PRN PRN Reason: Shortness of Breath/Wheezing Calcium Carbonate (Calcium Carbonate 750 Mg Tab.Chew) 750 mg PO Q4H PRN PRN Reason: Heartburn Enoxaparin Sodium (Enoxaparin Sodium 40 Mg/0.4 Ml Syringe) 40 mg SUBCUT Q24H [facility] Last Admin: 04/24/25 20:55 Dose: 40 mg Documented By: GERTRUDIS Hydromorphone HCl (Hydromorphone Hcl 0.5 Mg/0.5 Ml Syringe) 0.5 mg IVPUSH Q3H PRN; Protocol PRN Reason: Pain, Severe (Pain Scale 7-10) Last Admin: 04/25/25 09:22 Dose: 0.5 mg Documented By: BHAVNA Thiamine HCl 100 mg/ Sodium (Chloride) 101 mls @ 202 mls/hr IV DAILY [facility] [place] Last Infusion: 04/25/25 10:28 Dose: Infused Documented By: BHAVNA Folic Acid 1 mg/ Sodium (Chloride) 50.2 mls @ 100.4 mls/hr IV DAILY [facility] [place] Last Infusion: 04/25/25 09:48 Dose: Infused Documented By: BHAVNA Piperacillin Sod/Tazobactam (Sod 4.5 gm/ Sodium Chloride) 100 mls @ 200 mls/hr IV Q6H [facility] Last Admin: 04/25/25 10:21 Dose: 100 mls/hr Documented By: BHAVNA Magnesium Hydroxide (Milk Of Magnesia 30 Ml Oral.Susp) 30 ml PO DAILY PRN PRN Reason: Constipation Melatonin (Melatonin 3 Mg Tablet) 6 mg PO BEDTIME PRN PRN Reason: Insomnia Ondansetron HCl (Ondansetron Hcl 4 Mg/2 Ml Vial) 4 mg IVPUSH Q8H PRN PRN Reason: Nausea and Vomiting Last Admin: 04/25/25 06:26 Dose: 4 mg Documented By: LISANDRA Oxycodone HCl (Oxycodone Hcl Immed Release 5 Mg Tablet) 5 mg PO Q4H PRN PRN Reason: Pain, Moderate(Pain Scale 4-6) Polyethylene Glycol (Polyethylene Glycol 3350 17 Gm Powd.Pack) 17 gm PO DAILY PRN PRN Reason: Constipation Sodium Chloride (0.9 % Sodium Chloride Flush 3 Ml Syringe) 3 ml IVFLUSH QSHIFT [facility] [place] Last Admin: 04/25/25 07:31 Dose: Not Given Documented By: BHAVNA Non-Admin Reason: IV Running Labs 04/25/25 05:52 04/25/25 05:52 Labs: Laboratory Results - last 24 hr 04/24/25 04/24/25 04/24/25 15:02 16:10 19:28 MCV 90.1 MCH 31.5 MCHC 34.9 RDW 14.2 Plt Count 185 MPV 9.1 L Immature Gran % (Auto) 0.5 H Neut % (Auto) 69.2 Lymph % (Auto) 12.9 L [place] % (Auto) 13.7 H Eos % (Auto) 3.5 Baso % (Auto) 0.2 Lymph # (Auto) 1.5 [place] # (Auto) 1.6 H Eos # (Auto) 0.4 Baso # (Auto) 0.0 Abs Immat Gran (auto) 0.06 H Absolute Neuts (auto) 8.1 Absolute Nucleated RBC 0.000 Nucleated RBC % (auto) 0.0 Smear Tech's Comments VERIFIED Anion Gap 14 Estim Creat Clear Calc 102.1 Estimated GFR > 60 Random Glucose 98 Estimat Average Glucose Hemoglobin A1c % Lactic Acid 0.8 Calcium 8.8 Phosphorus 2.4 L Magnesium 1.9 Total Bilirubin 4.0 H Direct Bilirubin 3.1 H GGT AST 75 H ALT 80 H Alkaline Phosphatase 139 H Total Protein 6.3 L Albumin 3.3 L Triglycerides 76 Lipase 8 Beta HCG, Quant < 2 Urine Color Dark Yellow Urine Appearance Cloudy Urine pH 6.0 Ur Specific [place] 1.015 Urine Protein 30 (1+) H Urine Glucose (UA) Negative Urine Ketones 15 Urine Blood Trace H Urine Nitrite Positive H Ur Leukocyte Esterase Small (1+) H Urine RBC 6-10 H Urine WBC 11-20 H Ur Squamous Epith Cells 6-10 Urine Bacteria 4+ Hyaline Casts 3-5 Ur N gonorrhoeae DNA (PCR) NOT DETECTED Ethyl Alcohol < 10 Ur Chlamydia DNA (PCR) DETECTED A 04/25/25 05:52 MCV 90.4 MCH 31.4 MCHC 34.7 RDW 14.5 Plt Count 181 MPV 9.7 Immature Gran % (Auto) 0.4 Neut % (Auto) 53.5 Lymph % (Auto) 25.3 [place] % (Auto) 13.8 H Eos % (Auto) 6.7 H Baso % (Auto) 0.3 Lymph # (Auto) 2.8 [place] # (Auto) 1.5 H Eos # (Auto) 0.7 H Baso # (Auto) 0.0 Abs Immat Gran (auto) 0.04 H Absolute Neuts (auto) 5.9 Absolute Nucleated RBC 0.000 Nucleated RBC % (auto) 0.0 Smear Tech's Comments VERIFIED Anion Gap 12 Estim Creat Clear Calc 104.5 Estimated GFR > 60 Random Glucose 94 Estimat Average Glucose 91 Hemoglobin A1c % 4.8 Lactic Acid 0.7 Calcium 8.2 L D Phosphorus Magnesium Total Bilirubin 2.1 H Direct Bilirubin 1.6 H GGT 203 H AST 83 H ALT 76 H Alkaline Phosphatase 124 H Total Protein 5.5 L Albumin 2.8 L Triglycerides Lipase Beta HCG, Quant Urine Color Urine Appearance Urine pH Ur Specific [place] Urine Protein Urine Glucose (UA) Urine Ketones Urine Blood Urine Nitrite Ur Leukocyte Esterase Urine RBC Urine WBC Ur Squamous Epith Cells Urine Bacteria Hyaline Casts Ur N gonorrhoeae DNA (PCR) Ethyl Alcohol Ur Chlamydia DNA (PCR) Assessment and Plan (1) Pyelonephritis: Status: Acute Plan d2, 29yo F with AUD, hx cocaine abuse, hx UTI, tobacco abuse presenting with 5d of RUQ/R flank pain, found to have pyelonephritis with possible renal infarct vs abscess, also elevated LFTs R pyelonephritis, R kidney fluid collection 1.6 cm infarct vs abscess - 04/24- piperacillin-tazobactam, follow UCx + BCx, Urology consult pending hepatitis, mixed hepatocellular/cholestatic - suspect alcoholic liver disease; LFTs improving; hepatitis serologies pending, GI consult pending hypoK - replete PO, recheck level tomorrow AUD - CIWA, Addiction Medicine consultation tobacco abuse - declines NRT VTE ppx - enoxaparin dispo - eventual home In my clinical judgment, the patient requires continued inpatient hospitalization for the following reasons: IV ABX Total time managing care of this patient today: 35 minutes. Quality Stroke Does the patient have a stroke diagnosis?: No Reason for No Anti-thrombotic by Day Two: N/A - Med Ordered VTE Prior VTE?: No VTE Risk Level:: Medical - moderate - high VTE Device Contraindication: N/A - Device Ordered VTE Drug Contraindication: N/A - Med Ordered
--- NOTE | 2025-04-25 12:07 | MHC.CM.PN ---
PT REPORTS SHE LIVES WITH HER KIDS SHE IS INDEPENDENT, NO SERVICES AND NO DME USED SHE DECLINES A HCP NO PCP-BROCHURE PROVIDED DCP: HOME VIA PRIVATE TRANSPORT
--- NOTE | 2025-04-25 13:33 | MHC.RECOVRN ---
TW met with the patient to discuss current alcohol use and concerns related to increased risk of alcohol related problems after consult placed to Addiction Medicine for alcohol use. Pt was sleeping in bed, respirations even and unlabored, in no apparent distress. Pt had visitor at bedside who stated the pt had recently received pain medication. TW will reattempt to meet with pt and is available for continued support, questions, or concerns.
[2025-04-25] MEDS: 0.9 % Sodium Chloride Flush 3 ML SYRINGE IVFLUSH ×2 (15:30→21:38)
[2025-04-25] MEDS: oxyCODONE HCl Immed Release 5 MG TABLET PO (16:52)
[2025-04-26] VITALS: BP 129/88; PULSE 67; RESP 18; TEMP 36.6; O2SAT 100
[2025-04-26 03:42] VITALS: BP 107/68; PULSE 63; RESP 19; TEMP 36.6; O2SAT 98
[2025-04-26 06:31] LABS: Alanine Aminotransferase 52 U/L (0-31); Albumin Level 2.6 g/dL (3.5-5.0); Alkaline Phosphatase 113 U/L (39-117); Anion Gap 11 (12-20); Aspartate Amino Transferase 39 U/L (5-31); Blood Urea Nitrogen 4 mg/dL (9-16); Calcium 8.4 mg/dL (8.4-10.2); Carbon Dioxide 26 mmol/L (22-29); Chloride 104 mmol/L (96-108); Creatinine Clr Calc Pharmacy 109.7; Estimated Glomerular Filt Rate > 60; Magnesium 1.7 mg/dL (1.6-2.6); Potassium 3.3 mmol/L (3.3-5.1); Sodium 138 mmol/L (135-145); Total Protein 5.3 g/dL (6.5-8.0)
[2025-04-26 08:00] VITALS: BP 135/67; PULSE 63; RESP 18; TEMP 36.3; O2SAT 99
[2025-04-26 08:13] LABS: HIV Num 1 0.08 S/CO (0.00-0.99)
[2025-04-26 08:18] LABS: HBS Num1 0.00 mIU/mL (0-7.99); HBc Num1 0.34 S/CO (0.00-0.79); HBsAGNum1 0.42 S/CO (0.00-0.99); Hepatitis B Surface Antigen Negative (Negative); ~HepC Num1 0.19 S/CO (0.00-0.79); ~Hepatitis B Surface Antibody NONREACTIVE (Nonreactive); ~Hepatitis C Antibody Nonreactive (Nonreactive)
[2025-04-26] MEDS: Potassium Chloride Packet 20 MEQ PACKET 40 MEQ PO (08:44)
[2025-04-26] MEDS: 0.9 % Sodium Chloride Flush 3 ML SYRINGE IVFLUSH (08:46)
[2025-04-26 08:51] LABS: Hepatitis A Antibody IgM 0.19 Index (0-0.79); ~Hepatitis A Antibody IgM Nonreactive (Nonreactive)
[2025-04-26] MEDS: Thiamine HCL 100 MG in 0.9 % Sodium Chloride 100 ML 202 MG IV (09:23)
--- NOTE | 2025-04-26 10:02 | PM.UROCN ---
History of Present Illness Consult details Consult date: 04/26/25 Narrative: CC: Pyelonephritis 29-year-old black female with presentation of 5 days of right lower quadrant pain and right flank pain associated with nausea and vomiting. Admitted due to elevated liver function tests. Imaging CT Right pyelonephritis. 1.6 cm region of decreased enhancement which measures slightly higher than simple fluid in the upper pole of the right kidney could be a developing abscess or infarct. No urinary tract stone or obstruction WBC 11.1, creatinine 0.8, HbA1c 4.8. Patient started on ceftriaxone in emergency room. Reports improvement. Microbiology - ampicillin resistant E coli UTI - Would discharge and treat for 14 days. Review of Systems Constitutional: Constitutional: Reports as per HPI and Reports no additional constitutional complaints Cardiovascular: Cardiovascular: Reports as per HPI and Reports no additional cardiovascular complaints Respiratory: Respiratory: Reports as per HPI and Reports no additional respiratory complaints Gastrointestinal: Gastrointestinal: Reports as per HPI and Reports no additional gastrointestinal complaints Genitourinary: Genitourinary: Reports as per HPI Musculoskeletal: Musculoskeletal: Reports no additional musculoskeletal complaints and Reports as per HPI Neurologic: Reports system reviewed and no additional complaints, except as documented and Reports as per HPI [facility] Past Medical History Medical History (Updated 04/25/25 @ 09:03 by Hedy Becerra MD) Cocaine use UTI (urinary tract infection) Accidental poisoning by alcoholic beverages Alcohol use disorder Surgical History Surgical History (Updated 04/24/25 @ 20:49 by DARIN Guerra) H/O wisdom tooth extraction Social History Social History (Updated 04/24/25 @ 20:51 by DARIN Guerra) Household Members: Children and Friend(s) Housing: House Do you presently have visiting nurse or other home services: No Alcohol intake: current Comment: Patient drinks alcohol hard liquor mostly vodka and Tequila mostly 4/7 days Patient Tobacco Use Status: Current everyday Tobacco user Tobacco use type: Cigarette Cigarette Packs Per Day: 0 Cigarettes Per Day: 0 Years Smoked: Thirteen Smoked in Last 30 Days: Yes e-Cigarette/Vaping Use: Currently Using Frequency of e-Cigarette/Vaping Use: daily Patient Interested in Nicotine Replacement: No Patient Given Instructions on How to Stop Smoking: No Second Hand Smoke Exposure: No Use of substances other than those prescribed or required for medical reasons: No Substance Use Type: Crack/Cocaine and Marijuana Substance Use Type Other:: Patient uses marijuana mixed with tobacco everyday Substance Use Frequency: Daily Substance Use Frequency Other:: No longer uses cocaine, patient has stopped when her 1st daughter was born Currently Displaying Signs/Symptoms of Drug Intoxication Withdrawal: No Have you been hit, kicked, punched, or otherwise hurt by someone within the past year? If so, by whom?: No Do you feel safe in your current relationship?: Yes Is there a partner from a previous relationship who is making you feel unsafe now?: No Are you made to feel afraid or neglected: No Advance Directives: No Advance Directives Information Provided: Yes Do you have a plan to hurt others: No Plan Recently lost weight without trying: Yes How much weight loss: 2-13 pounds Eating poorly because of decreased appetite: Yes Nutrition screen score: 4 Nutrition Risks: No Nutritional Risk Patient : No : No Poor oral hygiene: No service: No Travel History Ebola Risk: Travel/Contact With Anyone From Affected Area/s: No Has Patient Experienced Ebola Symptoms: No Meds Allergies Allergy/AdvReac Type Severity Reaction Status Date / Time No Known Allergies Allergy Verified 04/24/25 14:03 Active Medications: Current Medications Acetaminophen (Acetaminophen 325 Mg Tablet) 650 mg PO Q6H PRN PRN Reason: Pain, Mild 1-3,fever,headache Last Admin: 04/26/25 08:52 Dose: 650 mg Albuterol/Ipratropium (Albuterol/Iprat 2.5/0.5mg 3 Ml Ampul.Neb) 3 ml INHALE Q4H PRN PRN Reason: Shortness of Breath/Wheezing Calcium Carbonate (Calcium Carbonate 750 Mg Tab.Chew) 750 mg PO Q4H PRN PRN Reason: Heartburn Last Admin: 04/26/25 09:29 Dose: 750 mg Enoxaparin Sodium (Enoxaparin Sodium 40 Mg/0.4 Ml Syringe) 40 mg SUBCUT Q24H DIA Last Admin: 04/25/25 21:37 Dose: 40 mg Hydromorphone HCl (Hydromorphone Hcl 0.5 Mg/0.5 Ml Syringe) 0.5 mg IVPUSH Q3H PRN; Protocol PRN Reason: Pain, Severe (Pain Scale 7-10) Last Admin: 04/26/25 00:56 Dose: 0.5 mg Thiamine HCl 100 mg/ Sodium (Chloride) 101 mls @ 202 mls/hr IV DAILY [facility] Last Infusion: 04/26/25 10:01 Dose: Infused Folic Acid 1 mg/ Sodium (Chloride) 50.2 mls @ 100.4 mls/hr IV DAILY [facility] Last Infusion: 04/26/25 09:22 Dose: Infused Piperacillin Sod/Tazobactam (Sod 4.5 gm/ Sodium Chloride) 100 mls @ 200 mls/hr IV Q6H [facility] Last Infusion: 04/26/25 04:12 Dose: Infused Magnesium Hydroxide (Milk Of Magnesia 30 Ml Oral.Susp) 30 ml PO DAILY PRN PRN Reason: Constipation Melatonin (Melatonin 3 Mg Tablet) 6 mg PO BEDTIME PRN PRN Reason: Insomnia Ondansetron HCl (Ondansetron Hcl 4 Mg/2 Ml Vial) 4 mg IVPUSH Q8H PRN PRN Reason: Nausea and Vomiting Last Admin: 04/26/25 00:59 Dose: 4 mg Oxycodone HCl (Oxycodone Hcl Immed Release 5 Mg Tablet) 5 mg PO Q4H PRN PRN Reason: Pain, Moderate(Pain Scale 4-6) Last Admin: 04/25/25 16:52 Dose: 5 mg Polyethylene Glycol (Polyethylene Glycol 3350 17 Gm Powd.Pack) 17 gm PO DAILY PRN PRN Reason: Constipation Sodium Chloride (0.9 % Sodium Chloride Flush 3 Ml Syringe) 3 ml IVFLUSH QSHIFT [facility] Last Admin: 04/26/25 08:46 Dose: 3 ml Home Medications ?Medication ?Instructions ?Recorded ?Confirmed ?Last Taken ?Type No Known Home Meds 04/25/25 04/25/25 Unknown History Physical Exam Vital Signs: Vital Signs: Last Vital Signs Temp 97.4 F 04/26/25 08:00 Pulse 63 04/26/25 08:00 Resp 18 04/26/25 08:00 BP 135/67 04/26/25 08:00 Pulse Ox 99 04/26/25 08:00 O2 Del Method Room Air 04/26/25 08:00 BMI result Body Mass Index 26.6 Const: General: cooperative, healthy appearing, comfortable and no acute distress Orientation/consciousness: patient oriented x3 HEENT: Face and sinus: Yes normal facial exam Mouth: moist mucous membranes Neck: Neck: Yes normal visual inspection, Yes full ROM and Yes trachea midline Chest: Chest palpation & inspection: normal inspection of the chest Resp: Effort & Inspection: normal respiratory effort, able to speak in complete sentences and no respiratory distress GI: Inspection: Yes normal to inspection Back/Spine/Pelvis: Cervical Spine: normal cervical lordosis Thoracic/Lumbar Spine: thoracic and lumbar spine normal to inspection Skin: General skin exam: no rashes or lesions noted Neuro: General: patient oriented x3, tone normal and moves all extremities Extrem: General: Yes normal to inspection and Yes capillary refill normal Results Labs 04/25/25 05:52 04/26/25 05:53 Labs: Abnormal lab results 04/26/25 Range/Units 05:53 Anion Gap 11 L (12-20) BUN 4 L (9-16) mg/dL Total Bilirubin 1.4 H (0.0-1.0) mg/dL AST 39 H (5-31) U/L ALT 52 H (0-31) U/L Total Protein 5.3 L (6.5-8.0) g/dL Albumin 2.6 L (3.5-5.0) g/dL BMP 04/26/25 05:53 Sodium 138 Potassium 3.3 Chloride 104 Carbon Dioxide 26 BUN 4 L Creatinine 0.81 Calcium 8.4 Liver Function 04/26/25 Range/Units 05:53 Total Bilirubin 1.4 H (0.0-1.0) mg/dL AST 39 H (5-31) U/L ALT 52 H (0-31) U/L Alkaline Phosphatase 113 (39-117) U/L Albumin 2.6 L (3.5-5.0) g/dL Urine 04/24/25 Range/Units 16:10 Urine Color Dark Yellow Urine Appearance Cloudy Urine pH 6.0 (5.0-9.0) Ur Specific [place] 1.015 (1.005-1.025) Urine Protein 30 (1+) H (Neg-Trace) mg/dL Urine Glucose (UA) Negative (Negative) mg/dL All other labs normal. Assessment and Plan (1) Abscess of right kidney: Status: Acute Plan Pyelonephritis Complete 14 days antibiotics May switch to oral antibiotics given urine culture results Procedures Date of Service Date of Service: 04/26/25
[2025-04-26 12:00] VITALS: BP 118/83; PULSE 65; RESP 18; TEMP 36.2; O2SAT 99
--- NOTE | 2025-04-26 12:10 | MHC.CM.PN ---
PER MD ROUNDS, PT NOT READY TO DC DUE TO ONGOING PAIN AND NEED FOR UROLOGY CONSULT DCP: HOME VIA PRIVATE TRANSPORT
--- NOTE | 2025-04-26 12:58 | PM.DS ---
DS: Providers Provider Date of Service: 04/26/25 Date of admission: 04/24/25 19:36 Date of discharge: 04/26/25 Primary care physician: None Physician Consults: 04/24/25 20:20 Consult to Gastroenterology Routine Consulting Provider: Hedy Becerra Reason for consultation: elevated liver enzymes Consult to Urology Routine Consulting Provider: [facility] Reason for consultation: pyelonephritis Has provider been notified: No 04/24/25 21:00 Addiction Medicine Provider Routine Consulting Provider: Addiction Covering Reason for consultation: alcohol use disorder Has provider been notified: No DS: Diagnosis Discharge Diagnosis (1) Abscess of right kidney: Status: Acute DS: Summary Hospital Course Hospital Course: From admission HPI: Date of Service: 04/24/25 Attending physician on admission: Justin Robb Chief Complaint: RUQ abdominal pain with N/V X5D Patient is a 29-year-old black female with past medical history alcohol use disorder, one episode of alcohol poisoning 2023, remote hx of smoking cocaine no hx of IVDA, UTI, STD remotely and treated, marijuana/tobacco use presents to ED with 5 days of persistent RUQ pain and R FLank pain with N/V. Pt reports having chills, unsure if fever was present. Pt denies any chest pain, SOB at rest or with exertion, lower leg pain, RIOS, or visual changes. Pt currently feeling better after receiving Flagyl, IVF and zofran. Pt starting ceftriaxone. Patient denies any vaginal discharge or burning or pain on urination. Patient denies any history of hepatitis a, B, C or HIV. Patient states she was last tested for hepatitis 2 years prior. Work up in ED noted elevated LFTs and TBILI (4.0), DBILI (3.1), AST 75, ALT 80 and ALK PHOS 139. K 2.7 and pt was started on IVF K 40 MEQ infusing currently. Lactic Acid 0.8. Leukocytosis of 11.[address] notes Gallbladder is unremarkable. There was no evidence of common bile duct dilatation. Liver is of normal size and attenuation without focal lesion or periportal edema. There may be the presence of a dominant follicle in the right ovary. Appendix is normal. Ultrasound of the abdomen nose hepatomegaly and hepatitis should be considered. Ultrasound is negative for acute cholecystitis. CT of the abdomen and pelvis notes right pyelonephritis correlating with patient's complaint of right flank pain which could indicate developing abscess or infarct based on the slightly higher than simple fluid in the upper pole of the right kidney. There is no evidence of urinary tract stone or obstruction. There is the presence of pelvic ascites and/or physiological free fluid. UA notes +1 protein, trace blood, positive nitrites, small leukocyte esterase, 6-10 RBCs, 11-20 WBCs, 4+ bacteria and 3-5 hyaline cast. Gonorrhea testing is Pending. ED provider spoke with both urology and GI. Urology recommends at least 2 weeks of antibiotics and ceftriaxone was started 2 g Q 24. Urine culture and blood cultures pending. GI recommends that if patient's liver enzymes and bilirubin continued to rise, that patient will need a MRI in the a.m.. Flagyl had been started in the ED. Patient is also on IV fluids with 40 KCL noting potassium is 2.7. Telemetry ordered. Hospital course Pt was admitted to the hospital for elevated LFTs and right pyelonephritis with concerns for possible renal abscess or infarct. Pt was treated with IV Zosyn analgesics for right flank pain. Urology was consulted due to concerns for renal infarct or abscess; they recommended treating for pyelonephritis and with no additional workup or treatment indicated at this time. UA cultures were positive for E coli sensitive to ceftriaxone. Pt will be discharged on cefuroxime 500 mg b.i.d. x12 for a total 14 days of antibiotic coverage. Pt has shocked follow up with Dr. Giraldo in Urology in 1-2 weeks. Workup also indicated elevated LFTs. Imaging including ultrasound and CT scan negative for acute cholecystitis. LFTs downtrended during hospital stay, likely elevated secondary to alcohol use. Pt has been drinking and unspecified amount of alcohol daily. Pt declined Addiction medicine consult but was counseled on alcohol cessation. Time Attestation Discharge Coordination Time (in mins): 40 Quality: Safe Use of Opioids Does Pt have an Active Cancer Diagnosis on the Problem List?: No Quality: Stroke Does the patient have a stroke diagnosis?: No Physical Exam Exam: Exam: General: AOx3, no acute distress Resp: CTA bilaterally CVS: S1, S2, RRR GI: +BS, no distention, right-sided tenderness Back: Mild right CVA tenderness Skin: Warm, dry Neuro: Cranial nerves II-XII grossly intact bilaterally. Motor grossly intact bilaterally Extremities: No edema Psych: Appropriate affect Vital Signs: Vital Signs: Last Vital Signs Temp 97.2 F 04/26/25 12:00 Pulse 65 04/26/25 12:00 Resp 18 04/26/25 12:00 BP 118/83 04/26/25 12:00 Pulse Ox 99 04/26/25 12:00 O2 Del Method Room Air 04/26/25 12:00 BMI result Body Mass Index 26.6 DS: Data Data Completed and Pending Labs on day of discharge: Laboratory Results - last 24 hr 04/24/25 04/26/25 17:12 05:53 Sodium 138 Potassium 3.3 Chloride 104 Carbon Dioxide 26 Anion Gap 11 L BUN 4 L Creatinine 0.81 Estim Creat Clear Calc 109.7 Estimated GFR > 60 Random Glucose 86 Calcium 8.4 Magnesium 1.7 Total Bilirubin 1.4 H AST 39 H ALT 52 H Alkaline Phosphatase 113 Total Protein 5.3 L Albumin 2.6 L Hepatitis A IgM Ab Nonreactive Hep Bs Antigen Negative Hep Bs Antibody NONREACTIVE Hep B Core Total Ab Nonreactive Hepatitis C Ab (EIA) Nonreactive HIV 1&2 Ab/P24 Ag 4thGn Nonreactive Preliminary micro results at discharge 04/24/25 19:28 Blood Culture - Preliminary Blood - Venous No growth after 24 hours. 04/24/25 19:28 Blood Culture - Preliminary Blood - Venous No growth after 24 hours. Discharge Plan Discharge Anticipated Discharge Date/Time: 04/26/25 12:38 Patient Disposition: Home, Self-Care Discharge Diagnosis: Pyeloneprhitis Referrals: Winston Giraldo MD [Physician, Urology] - 1 Week Physician,None [Primary Care Provider, Medical] - 1 Week Discharge Medications: New cefuroxime axetil 500 mg tablet 500 mg PO BID Qty: 25 0RF Rx Instructions: Take one tablet with food twice a day for the next 12 days, starting on the evening of 04/26 and ending on the evening of 05/08. oxycodone 5 mg capsule 5 mg PO Q8H PRN (Reason: pain, severe) Qty: 6 0RF Rx Instructions: Partial Fill upon patient request. Discharge Orders: Discharge Order (Routine); Ordered 04/26/25 Ordered By: Margy Borrego Activity on Discharge: As tolerated Stand Alone Forms: Patient Portal Discharge page Print Language: Macedonian Care Plan Goals: See below Health Concerns: Pyelonephritis UTI Renal abscess Renal infarct Plan of Treatment: You were admitted to the hospital for a complicated UTI and kidney infection for which you were treated with IV antibiotics. Imaging with question of developing renal abscess or infarct; urology was consulted who felt though other acute intervention or workup necessary at this time. -- for pyelonephritis, take cefuroxime 500 mg twice a day with food for the next 12 days, starting the evening of 04/26 and ending the evening of 05/08 -- you will also be prescribed a short course of oxycodone for flank pain -- follow up with Dr. Giraldo in urology in 1-2 weeks -- for alcohol dependence, you are strongly encouraged to abstain from alcohol comsumption Assessment: See discharge summary
[2025-04-26 13:20] VITALS: BP 132/77; PULSE 64; RESP 18; TEMP 36.8; O2SAT 97
== END 2025-04-26 13:31 | disposition home or self-care (01) | DRG 463 ==
LOC: HO.ED 19:09 → HO.EDOVER 19:39 → HO.S3 04-25 01:45
PROVIDERS: Family Medicine; Nurse Practitioner Family; Physician Assistant; Admitting Provider Internal Medicine; Emergency Provider Emergency Medicine; Visit Provider Student in an Organized Health Care Education/Training Program
DX: N12 Tubulo-interstitial nephritis, not specified as acute or chronic (principal); K83.09 Other cholangitis; K70.10 Alcoholic hepatitis without ascites; B96.20 Unspecified Escherichia coli [E. coli] as the cause of diseases classified elsewhere; Z16.11 Resistance to penicillins; F10.90 Alcohol use, unspecified, uncomplicated; F17.210 Nicotine dependence, cigarettes, uncomplicated; E87.6 Hypokalemia; Z71.6 Tobacco abuse counseling
CPT/HCPCS: 36415; 74177; 76705; 80048; 80053; 80076; 80307; 81001; 82248; 82977; 83036; 83605; 83690; 83735; 84100; 84478; 84702; 85025; 86704; 86706; 86709; 86803; 87040; 87086; 87088; 87186; 87340; 87389; 87491; 87591; 99285; J0696; J1171; J1650; J1808; J1836; J2405; J2543; J3411; J3475; J3480; J7120; Q9967; S9485

== ENCOUNTER → 2025-04-24 14:47 | Outpatient (BNV) | payer OTHER, SELFPAY | PROVIDERS: Emergency Provider Emergency Medicine; Visit Provider Radiology Diagnostic Radiology | DX: N10 Acute pyelonephritis (principal); R16.0 Hepatomegaly, not elsewhere classified; R10.11 Right upper quadrant pain | CPT/HCPCS: 74177; 76705 ==

== ENCOUNTER → 2025-04-24 19:36 | Outpatient (BNV) | payer OTHER, SELFPAY | PROVIDERS: Admitting Provider Internal Medicine; Emergency Provider Emergency Medicine; Visit Provider Family Medicine | DX: N15.1 Renal and perinephric abscess (principal); N12 Tubulo-interstitial nephritis, not specified as acute or chronic; F10.90 Alcohol use, unspecified, uncomplicated | CPT/HCPCS: 99223; 99232 ==

== ENCOUNTER → 2025-04-24 19:36 | Outpatient (BNV) | payer OTHER, SELFPAY | PROVIDERS: Admitting Provider Internal Medicine; Emergency Provider Emergency Medicine; Visit Provider Internal Medicine Gastroenterology | DX: R79.89 Other specified abnormal findings of blood chemistry (principal) | CPT/HCPCS: 99222 ==

== ENCOUNTER → 2025-04-24 19:36 | Outpatient (BNV) | payer OTHER, SELFPAY | PROVIDERS: Admitting Provider Internal Medicine; Emergency Provider Emergency Medicine; Visit Provider Urology | DX: N15.1 Renal and perinephric abscess (principal) | CPT/HCPCS: 99222 ==

== ENCOUNTER 2025-06-22 10:43 | Outpatient (REF) | payer OTHER, SELFPAY ==
--- NOTE | ~2025-06-22 | US_ITS ---
CLINICAL HISTORY: N12 - Tubulo-interstitial nephritis, not specified as acute or chronic US renal with Color Doppler Comparison: CT/SR - CT ABDOMEN PELVIS W IV CON - 04/24/25 16:48 EDT US - US ABDOMEN LIMITED - 04/24/25 15:23 EDT Findings: Right kidney normal size and echotexture, 9.8 cm length. No hydronephrosis calculus or mass. Normal color flow. Left kidney normal size and echotexture, 11.0 cm length. No hydronephrosis calculus or mass. Normal color flow. Impression: 1. Normal renal ultrasound This document has been electronically signed by: Edgardo Montes MD on 06/23/2025 12:07:16
== END 2025-06-22 10:44 | disposition home or self-care (01) ==
LOC: HO.HMGCX 10:43
PROVIDERS: Visit Provider Urology
DX: N12 Tubulo-interstitial nephritis, not specified as acute or chronic (principal)
CPT/HCPCS: 76775

== ENCOUNTER → 2025-06-22 10:47 | Outpatient (BNV) | payer OTHER, SELFPAY | PROVIDERS: Visit Provider Radiology Diagnostic Radiology | DX: N12 Tubulo-interstitial nephritis, not specified as acute or chronic (principal) | CPT/HCPCS: 76775 ==